=== PATIENT | male | born 1965 | race Two or more races ===

== ENCOUNTER 2024-03-08 17:11 | Outpatient (CLI) | payer OTHER | END 2024-03-08 23:00 | disposition home or self-care (01) | LOC: EDSEX 17:11 → LAB 17:11 | PROVIDERS: ATTEND Urology | DX: R97.20 Elevated prostate specific antigen [PSA] (principal) ==

== ENCOUNTER 2024-04-05 08:55 | Outpatient (CLI) | payer OTHER | END 2024-04-05 09:09 | disposition home or self-care (01) | LOC: SONOGRAMA 08:55 | PROVIDERS: ATTEND Urology | DX: C61 Malignant neoplasm of prostate (principal); N40.1 Benign prostatic hyperplasia with lower urinary tract symptoms; R97.20 Elevated prostate specific antigen [PSA] ==

== ENCOUNTER 2024-07-03 13:27 | Inpatient (IN) | payer OTHER ==
[~2024-07-03] VITALS: Ht 180.3 cm; Wt 89.8 kg
[2024-07-03 13:15] VITALS: BP 142/90
[2024-07-03 13:18] LABS: HEMATOCRIT 41.6 % (39.0-48.0); HEMOGLOBIN 14.2 g/dL (13-16.00); MEAN CELL VOLUME 93.5 fL (80.0-100.00); MEAN CORPUSCULAR HGB CONC 34.2 g/dl (32.0-36.0); PLATELET COUNT 169 K/uL (150-450); RED BLOOD COUNT 4.45 M/uL (4.00-6.00); RED CELL DISTRIBUTION WIDTH 15.1 % (11.5-14.5)
[2024-07-03 13:19] LABS: PH,URINE 7.5 (5.0-8.0); URINE APPEARANCE Clear; URINE BILIRRUBIN Negative (NEGATIVE); URINE BLOOD Negative; URINE COLOR Yellow; URINE GLUCOSE Negative (NEGATIVE); URINE KETONE Negative (NEGATIVE); URINE LEUKOCYTE Trace; URINE NITRATE Negative; URINE PROTEIN Negative (NEGATIVE)
[2024-07-03 13:22] LABS: URINE BACTERIA 7.3 uL (0.0-1933); URINE RBC 4.2 uL (0.0-20.8)
[~2024-07-03 13:27] MED LIST: CARVEDILOL12.5 MG; LIPITOR40 M1 PO; MICARDIS HCT 81 EAC1 PO
[2024-07-03 13:36] LABS: INR 1.11; PARTIAL THROMBOPLASTIN TIME 26.9 SECONDS (22.0-34.0)
[2024-07-03 13:38] LABS: COVID-19 AG NEGATIVE (NEGATIVE)
[2024-07-03 13:46] LABS: URINE EPITHELIAL CELLS 1.1 uL (0.0-38.8)
[2024-07-03 14:25] LABS: CALCIUM 9.1 mg/dL (8.5-10.1); CREATININE SERUM 0.71 mg/dL (0.70-1.30); GFR 114.35; POTASSIUM 4.19 mEq/L (3.5-5.1)
[2024-07-03 15:18] LABS: RH POSITIVE
[2024-07-04] MEDS ORDERED: CEFAZOLIN SODIUM 1,000 MG VIAL ONE (10:38)
[2024-07-04] MEDS ORDERED: ENOXAPARIN SODIUM 40 MG/0.4 ML SYRINGE SUBCUTANEO ONE (10:39)
[2024-07-04] MEDS ORDERED: BUPIVACAINE HCL/MPF 0.5% 30ML VIAL ONE (12:01)
[2024-07-04] MEDS ORDERED: SUGAMMADEX SODIUM 200 MG/2 ML VIAL IV ONE (12:29)
[2024-07-04] MEDS ORDERED: SURGIFLO APPLICATOR 1 EACH APPL TOP ONE (13:00)
[2024-07-04] MEDS ORDERED: HEMOSTATIC MATRIX 1 KIT KIT TOP ONE (13:00)
[2024-07-04] MEDS ORDERED: OxyCODONE HCL 5 MG TABLET (ROXICODONE) PO PRN (17:15)
[2024-07-04] MEDS ORDERED: MORPHINE SULFATE 4 MG/ML CARTRIDGE IV PRN (17:15)
[2024-07-04] MEDS ORDERED: ENALAPRILAT DIHYDRATE 1.25 MG/ML VIAL IV PRN (17:15)
[2024-07-04] MEDS ORDERED: RINGERS SOLUTION,LACTATED 1,000 ML IV SCH (17:15)
[2024-07-04] MEDS ORDERED: ONDANSETRON HCL 2 MG/ML VIAL IV PRN (17:15)
[2024-07-04] MEDS ORDERED: ACETAMINOPHEN 325 MG TABLET PO PRN (17:45)
[2024-07-04] MEDS ORDERED: MORPHINE SULFATE 4 MG/ML VIAL IV ONE (19:50)
[2024-07-04 20:32] VITALS: BP 136/84
[2024-07-04 20:40] VITALS: BP 136/84; O2SAT 94
[2024-07-04] MEDS ORDERED: FAMOTIDINE/PF 20 MG/2 ML VIAL IV SCH (21:00)
[2024-07-04] MEDS ORDERED: CEFAZOLIN SODIUM 1,000 MG VIAL IV SCH (21:00)
[2024-07-05] MEDS ORDERED: GABAPENTIN 300 MG CAPSULE PO SCH (01:00)
[2024-07-05 01:23] VITALS: BP 150/83; O2SAT 97
[2024-07-05 06:33] LABS: HEMATOCRIT 36.7 % (39.0-48.0); HEMOGLOBIN 12.7 g/dL (13-16.00); MEAN CELL VOLUME 92.2 fL (80.0-100.00); MEAN CORPUSCULAR HEMOGLOBIN 31.8 pg (27.00-32.0); MEAN CORPUSCULAR HGB CONC 34.5 g/dl (32.0-36.0); PLATELET COUNT 144 K/uL (150-450); RED BLOOD COUNT 3.98 M/uL (4.00-6.00); RED CELL DISTRIBUTION WIDTH 15.1 % (11.5-14.5)
[2024-07-05 07:02] LABS: ALBUMIN 3.1 gm/dL (3.4-5.0); CALCIUM 8.5 mg/dL (8.5-10.1); CREATININE SERUM 0.83 mg/dL (0.70-1.30); GFR 95.49; PHOSPHOROUS 3.3 mg/dL (2.5-4.9); POTASSIUM 3.65 mEq/L (3.5-5.1)
[2024-07-05 08:29] VITALS: BP 155/86; O2SAT 95
[2024-07-05] MEDS ORDERED: CARVEDILOL 12.5 MG TABLET PO SCH (09:00)
[2024-07-05] MEDS ORDERED: ENOXAPARIN SODIUM 40 MG/0.4 ML SYRINGE SUBCUTANEO SCH (09:00)
[2024-07-05] MEDS ORDERED: POLYETHYLENE GLYCOL 3350 17 GM BLIST.PACK PO SCH (17:00)
== END 2024-07-05 15:13 | disposition home or self-care (01) | DRG 708 ==
LOC: O/R 07-04 06:20 → SURG 07-04 06:20 → EDSTATUS 07-04 09:45 → CIR.AMB 07-04 09:45 → SURH 07-04 09:46 → CIR.AMB 07-04 12:10 → SURG 07-04 18:32
PROVIDERS: ADMIT Urology; ATTEND Urology
PROC: 8E0W4CZ Robotic Assisted Procedure of Trunk Region, Percutaneous Endoscopic Approach (ICD-10-PCS; 2024-07-04)
PROC: 0VT04ZZ Resection of Prostate, Percutaneous Endoscopic Approach (ICD-10-PCS; principal; 2024-07-04 10:30)
DX: C61 Malignant neoplasm of prostate (principal)
CPT/HCPCS: 55866; S2900